=== PATIENT | male | born 2005 | race Caucasian/White ===

== ENCOUNTER 2025-02-12 20:58 | Emergency (ER) | payer MEDICAID ==
[~2025-02-12] VITALS: Ht 160 cm; Wt 63.6 kg
[2025-02-12 22:46] VITALS: BP 110/70; PULSE 57; RESP 18; TEMP 97.7; O2SAT 99
[2025-02-12] MEDS: ACETAMINOPHEN 500 MG TABLET PO ONE (23:04)
[2025-02-12] MEDS: IBUPROFEN 600 MG TABLET PO ONE (23:04)
[2025-02-12] MEDS ORDERED: IBUP-1554 PO (23:49)
[2025-02-12] MEDS ORDERED: ACET-66 PO (23:49)
== END 2025-02-13 00:05 | disposition home or self-care (01) ==
LOC: EMS 20:58
DX: S00.93XA Contusion of unspecified part of head, initial encounter (principal); F12.90 Cannabis use, unspecified, uncomplicated; W01.0XXA Fall on same level from slipping, tripping and stumbling without subsequent striking against object, initial encounter; R51.9 Headache, unspecified; Y93.89 Activity, other specified; Y92.89 Other specified places as the place of occurrence of the external cause; Y99.8 Other external cause status
CPT/HCPCS: 70450; 99284